=== PATIENT | female | born 1975 | race Caucasian/White ===

== ENCOUNTER 2022-03-28 16:22 | Emergency (ER) | payer MEDICAID ==
[~2022-03-28] VITALS: Ht 162.6 cm; Wt 71.0 kg
[~2022-03-28 16:22] MED LIST: ALBU8.5H17 IH; ALPR-624 PO; ATOR20TA PO; BUPR150T8 PO; CHLO25CA10 PO; CLIN-97 PO; DULO-31 PO; GUAI120015 PO; HYDR-4353 PO; HYDR-4383 PO; IBUP-1985 PO; METH-360 PO; TIZA6CAP7 PO; TRAZ-256 PO
[2022-03-28 18:12] VITALS: BP 101/74
[2022-03-28] MEDS ORDERED: IBUP-1986 PO (18:37)
[2022-03-28] MEDS ORDERED: HYDROcodone/acetaminophen 10/325mg tab PO ONE (18:50)
== END 2022-03-28 19:13 | disposition home or self-care (01) ==
LOC: ER 16:23
DX: S92.414A Nondisplaced fracture of proximal phalanx of right great toe, initial encounter for closed fracture (principal); I10 Essential (primary) hypertension; J45.909 Unspecified asthma, uncomplicated; G89.29 Other chronic pain; F41.9 Anxiety disorder, unspecified; F17.200 Nicotine dependence, unspecified, uncomplicated; F10.10 Alcohol abuse, uncomplicated; Z56.0 Unemployment, unspecified; Z79.899 Other long term (current) drug therapy; W18.39XA Other fall on same level, initial encounter; Y93.89 Activity, other specified; Y92.89 Other specified places as the place of occurrence of the external cause; Y99.8 Other external cause status; Y90.9 Presence of alcohol in blood, level not specified
CPT/HCPCS: 73630; 99283; L4360